=== PATIENT | female | born 1990 | race African-American/Black ===

== ENCOUNTER 2018-01-12 08:16 | Emergency (ER) | payer OTHER ==
[~2018-01-12] VITALS: Ht 157.5 cm; Wt 75.0 kg
[2018-01-12 10:38] LABS: CLARITY URINE CLEAR (CLEAR); COLOR URINE YELLOW (YELLOW); KETONES URINE TRACE (NEGATIVE); LEUKOCYTE ESTERASE URINE NEGATIVE (NEGATIVE); NITRITE URINE NEGATIVE (NEGATIVE); OCCULT BLOOD URINE TRACE (NEGATIVE); PROTEIN URINE NEGATIVE (NEGATIVE); SPECIFIC GRAVITY URINE 1.028 (1.005-1.030)
[2018-01-12 11:29] VITALS: BP 103/63
== END 2018-01-12 11:30 | disposition home or self-care (01) ==
LOC: ER 08:38
DX: H44.002 Unspecified purulent endophthalmitis, left eye (principal); N39.0 Urinary tract infection, site not specified; F17.200 Nicotine dependence, unspecified, uncomplicated
CPT/HCPCS: 81003; 99283